=== PATIENT | male | born 1970 | race Caucasian/White ===

== ENCOUNTER → 2016-08-09 | Outpatient (CLI) | payer OTHER ==
[~2016-08-09] MED LIST: FLEXERIL 10 MG10 MG PO; FLOMAX 0.4 MG0.4 MG PO; IBUPROFEN800 MG PO; METOPROLOL TART50 MG PO; NEURONTIN 300300 MG PO; PRILOSEC OTC20 MG PO; PYRIDIUM100 MG PO; SUBOXONE 8 MG-1 EACH SL; TRAZODONE HCL100 MG PO; [UNRECOGNIZED DRUG - OTHER] PO; [UNRECOGNIZED DRUG - REMARK] INH
== END ==
LOC: EXRD 14:30
DX: M25.512 Pain in left shoulder (principal); R07.9 Chest pain, unspecified; Y99.0 Civilian activity done for income or pay
CPT/HCPCS: 71020; 73030; 73080

== ENCOUNTER 2020-05-26 06:33 | Emergency (ER) | payer SELFPAY | END 2020-05-26 08:00 | disposition home or self-care (01) | LOC: ER1 06:33 | DX: S81.811A Laceration without foreign body, right lower leg, initial encounter (principal); S60.211A Contusion of right wrist, initial encounter; S70.01XA Contusion of right hip, initial encounter; I10 Essential (primary) hypertension; F17.210 Nicotine dependence, cigarettes, uncomplicated; Z88.0 Allergy status to penicillin; W19.XXXA Unspecified fall, initial encounter; Y92.009 Unspecified place in unspecified non-institutional (private) residence as the place of occurrence of the external cause | CPT/HCPCS: 12002; 73110; 73502; 73590; 73610; 99283 ==

== ENCOUNTER → 2020-06-22 | Outpatient (CLI) | payer OTHER ==
[~2020-06-22] MED LIST changes: +VIBRAMYCIN 100100 MG GT
== END ==
LOC: KOH-I 14:45
DX: S62.001A Unspecified fracture of navicular [scaphoid] bone of right wrist, initial encounter for closed fracture (principal); M25.551 Pain in right hip; S62.111A Displaced fracture of triquetrum [cuneiform] bone, right wrist, initial encounter for closed fracture
CPT/HCPCS: 73200; 73502; 73552

== ENCOUNTER 2020-07-02 14:24 | Emergency (ER) | payer OTHER ==
[~2020-07-02 14:24] MED LIST changes: -VIBRAMYCIN 100100 MG GT
[2020-07-02] MEDS ORDERED: VIBRAMYCIN 100100 MG GT (15:18)
== END 2020-07-02 15:48 | disposition home or self-care (01) ==
LOC: ER1 14:24
DX: S81.801A Unspecified open wound, right lower leg, initial encounter (principal); L08.9 Local infection of the skin and subcutaneous tissue, unspecified; I10 Essential (primary) hypertension; F17.200 Nicotine dependence, unspecified, uncomplicated; W22.8XXA Striking against or struck by other objects, initial encounter
CPT/HCPCS: 87070; 87077; 87186; 87205; 99283

== ENCOUNTER → 2020-07-13 | Outpatient (CLI) | payer OTHER ==
[~2020-07-13] MED LIST changes: +VIBRAMYCIN 100100 MG GT
== END ==
LOC: WCC 13:00
DX: T81.33XA Disruption of traumatic injury wound repair, initial encounter (principal); J44.9 Chronic obstructive pulmonary disease, unspecified; I10 Essential (primary) hypertension; F17.210 Nicotine dependence, cigarettes, uncomplicated; Z88.0 Allergy status to penicillin; Z79.2 Long term (current) use of antibiotics; Z79.899 Other long term (current) drug therapy; W19.XXXA Unspecified fall, initial encounter

== ENCOUNTER → 2020-07-20 | Outpatient (CLI) | payer OTHER | LOC: WCC 11:00 | DX: T81.33XD Disruption of traumatic injury wound repair, subsequent encounter (principal); I10 Essential (primary) hypertension; J44.9 Chronic obstructive pulmonary disease, unspecified; F17.210 Nicotine dependence, cigarettes, uncomplicated; Z79.2 Long term (current) use of antibiotics; Z79.899 Other long term (current) drug therapy; W19.XXXD Unspecified fall, subsequent encounter ==

== ENCOUNTER → 2020-07-27 | Outpatient (CLI) | payer OTHER | LOC: WCC 14:14 | DX: T81.33XD Disruption of traumatic injury wound repair, subsequent encounter (principal); J44.9 Chronic obstructive pulmonary disease, unspecified; I10 Essential (primary) hypertension; F17.210 Nicotine dependence, cigarettes, uncomplicated; Z88.0 Allergy status to penicillin; Z79.2 Long term (current) use of antibiotics; Z79.899 Other long term (current) drug therapy; W19.XXXD Unspecified fall, subsequent encounter ==

== ENCOUNTER → 2020-08-10 | Outpatient (CLI) | payer OTHER | LOC: WCC 14:30 | DX: T81.33XA Disruption of traumatic injury wound repair, initial encounter (principal); L97.912 Non-pressure chronic ulcer of unspecified part of right lower leg with fat layer exposed; I10 Essential (primary) hypertension; J44.9 Chronic obstructive pulmonary disease, unspecified; F17.210 Nicotine dependence, cigarettes, uncomplicated; Z88.0 Allergy status to penicillin; Z79.899 Other long term (current) drug therapy; W19.XXXA Unspecified fall, initial encounter ==

== ENCOUNTER → 2020-08-14 | Outpatient (CLI) | payer BC | LOC: MRI 10:23 | DX: L97.912 Non-pressure chronic ulcer of unspecified part of right lower leg with fat layer exposed (principal); J44.9 Chronic obstructive pulmonary disease, unspecified; I10 Essential (primary) hypertension; M79.661 Pain in right lower leg; R60.0 Localized edema | CPT/HCPCS: 73718 ==

== ENCOUNTER → 2020-08-17 | Outpatient (CLI) | payer BC | LOC: WCC 14:00 | DX: T81.33XA Disruption of traumatic injury wound repair, initial encounter (principal); L97.912 Non-pressure chronic ulcer of unspecified part of right lower leg with fat layer exposed; J44.9 Chronic obstructive pulmonary disease, unspecified; F17.210 Nicotine dependence, cigarettes, uncomplicated; I10 Essential (primary) hypertension; Z88.0 Allergy status to penicillin; Z79.899 Other long term (current) drug therapy; W19.XXXA Unspecified fall, initial encounter ==

== ENCOUNTER → 2020-08-27 | Outpatient (CLI) | payer BC | LOC: WCC 15:27 | DX: T81.33XD Disruption of traumatic injury wound repair, subsequent encounter (principal); I10 Essential (primary) hypertension; J44.9 Chronic obstructive pulmonary disease, unspecified; L97.912 Non-pressure chronic ulcer of unspecified part of right lower leg with fat layer exposed; M79.661 Pain in right lower leg; W19.XXXD Unspecified fall, subsequent encounter; Z79.899 Other long term (current) drug therapy ==

== ENCOUNTER → 2020-09-03 | Outpatient (CLI) | payer BC | LOC: WCC 15:00 | DX: T81.33XA Disruption of traumatic injury wound repair, initial encounter (principal); L97.912 Non-pressure chronic ulcer of unspecified part of right lower leg with fat layer exposed; J44.9 Chronic obstructive pulmonary disease, unspecified; F17.210 Nicotine dependence, cigarettes, uncomplicated; I10 Essential (primary) hypertension; Z88.0 Allergy status to penicillin; Z79.899 Other long term (current) drug therapy; W19.XXXA Unspecified fall, initial encounter ==

== ENCOUNTER → 2020-09-14 | Outpatient (CLI) | payer BC | LOC: WCC 13:00 | DX: T81.33XA Disruption of traumatic injury wound repair, initial encounter (principal); L97.912 Non-pressure chronic ulcer of unspecified part of right lower leg with fat layer exposed; J44.9 Chronic obstructive pulmonary disease, unspecified; F17.210 Nicotine dependence, cigarettes, uncomplicated; I10 Essential (primary) hypertension; W19.XXXA Unspecified fall, initial encounter; Z88.0 Allergy status to penicillin; Z79.899 Other long term (current) drug therapy ==

== ENCOUNTER → 2020-09-24 | Outpatient (CLI) | payer OTHER, BC | LOC: KOH-I 10:20 | DX: M25.572 Pain in left ankle and joints of left foot (principal) | CPT/HCPCS: 73610 ==

== ENCOUNTER → 2020-09-28 | Outpatient (CLI) | payer OTHER, BC | LOC: WCC 11:06 | DX: T81.33XD Disruption of traumatic injury wound repair, subsequent encounter (principal); F17.210 Nicotine dependence, cigarettes, uncomplicated; J44.9 Chronic obstructive pulmonary disease, unspecified; I10 Essential (primary) hypertension; M79.661 Pain in right lower leg; L97.912 Non-pressure chronic ulcer of unspecified part of right lower leg with fat layer exposed; W19.XXXD Unspecified fall, subsequent encounter | CPT/HCPCS: G0463 ==

== ENCOUNTER → 2020-11-06 | Outpatient (CLI) | payer BC | LOC: KOH-I 08:34 | DX: M67.972 Unspecified disorder of synovium and tendon, left ankle and foot (principal); M79.662 Pain in left lower leg | CPT/HCPCS: 73718 ==

== ENCOUNTER → 2021-02-01 | Outpatient (CLI) | payer BC ==
[2021-02-01 17:14] LABS: HEMOGLOBIN 17.9 gm/dl (14.0-17.5); RED BLOOD COUNT 5.35 M/UL (4.20-5.50); WHITE BLOOD COUNT 12.3 K/UL (4.5-11.0)
[2021-02-01 17:40] LABS: BUN/CREATININE RATIO 11 (0-10)
== END ==
LOC: LAB 15:20
DX: S86.019A Strain of unspecified Achilles tendon, initial encounter (principal)
CPT/HCPCS: 36415; 80053; 85025; 85652; 86141

== ENCOUNTER → 2021-04-05 | Outpatient (CLI) | payer BC | LOC: WCC 07:57 | DX: T81.31XA Disruption of external operation (surgical) wound, not elsewhere classified, initial encounter (principal); I10 Essential (primary) hypertension; J44.9 Chronic obstructive pulmonary disease, unspecified; F17.210 Nicotine dependence, cigarettes, uncomplicated; Z88.0 Allergy status to penicillin; M25.572 Pain in left ankle and joints of left foot ==

== ENCOUNTER → 2021-04-12 | Outpatient (CLI) | payer BC | LOC: WCC 07:37 | DX: T81.33XA Disruption of traumatic injury wound repair, initial encounter (principal); I10 Essential (primary) hypertension; J44.9 Chronic obstructive pulmonary disease, unspecified; M25.572 Pain in left ankle and joints of left foot; F17.210 Nicotine dependence, cigarettes, uncomplicated; Z88.0 Allergy status to penicillin ==

== ENCOUNTER → 2021-04-20 | Outpatient (CLI) | payer BC | LOC: WCC 08:44 | DX: T81.33XD Disruption of traumatic injury wound repair, subsequent encounter (principal); I10 Essential (primary) hypertension; J44.9 Chronic obstructive pulmonary disease, unspecified; M25.572 Pain in left ankle and joints of left foot; F17.210 Nicotine dependence, cigarettes, uncomplicated ==

== ENCOUNTER → 2021-04-28 | Outpatient (CLI) | payer BC | LOC: WCC 07:58 | DX: T81.33XA Disruption of traumatic injury wound repair, initial encounter (principal); I10 Essential (primary) hypertension; J44.9 Chronic obstructive pulmonary disease, unspecified; M25.572 Pain in left ankle and joints of left foot; A49.02 Methicillin resistant Staphylococcus aureus infection, unspecified site; Z72.0 Tobacco use; Z88.0 Allergy status to penicillin ==

== ENCOUNTER → 2021-05-04 | Outpatient (CLI) | payer BC | LOC: WCC 09:12 | DX: T81.33XA Disruption of traumatic injury wound repair, initial encounter (principal); I10 Essential (primary) hypertension; J44.9 Chronic obstructive pulmonary disease, unspecified; F17.210 Nicotine dependence, cigarettes, uncomplicated; M25.572 Pain in left ankle and joints of left foot; A49.02 Methicillin resistant Staphylococcus aureus infection, unspecified site; Z88.0 Allergy status to penicillin ==

== ENCOUNTER → 2021-05-10 | Outpatient (CLI) | payer BC | LOC: WCC 08:14 | DX: T81.33XA Disruption of traumatic injury wound repair, initial encounter (principal); I10 Essential (primary) hypertension; J44.9 Chronic obstructive pulmonary disease, unspecified; M25.572 Pain in left ankle and joints of left foot; A49.02 Methicillin resistant Staphylococcus aureus infection, unspecified site; F17.210 Nicotine dependence, cigarettes, uncomplicated; Z88.0 Allergy status to penicillin ==

== ENCOUNTER → 2021-05-17 | Outpatient (CLI) | payer BC | END | disposition home or self-care (01) | LOC: WCC 08:33 | PROC: 0JBP0ZZ Excision of Left Lower Leg Subcutaneous Tissue and Fascia, Open Approach (ICD-10-PCS; principal; 2021-05-17) | DX: T81.31XA Disruption of external operation (surgical) wound, not elsewhere classified, initial encounter (principal); I10 Essential (primary) hypertension; J44.9 Chronic obstructive pulmonary disease, unspecified; M19.90 Unspecified osteoarthritis, unspecified site; F17.210 Nicotine dependence, cigarettes, uncomplicated; Y83.8 Other surgical procedures as the cause of abnormal reaction of the patient, or of later complication, without mention of misadventure at the time of the procedure; Z88.0 Allergy status to penicillin ==

== ENCOUNTER → 2021-05-24 | Outpatient (CLI) | payer BC | LOC: WCC 08:13 | DX: T81.33XD Disruption of traumatic injury wound repair, subsequent encounter (principal); I10 Essential (primary) hypertension; J44.9 Chronic obstructive pulmonary disease, unspecified; M25.572 Pain in left ankle and joints of left foot; Y83.9 Surgical procedure, unspecified as the cause of abnormal reaction of the patient, or of later complication, without mention of misadventure at the time of the procedure; Z72.0 Tobacco use ==

== ENCOUNTER → 2021-05-31 | Outpatient (CLI) | payer BC | LOC: WCC 10:47 | DX: T81.33XD Disruption of traumatic injury wound repair, subsequent encounter (principal); I10 Essential (primary) hypertension; J44.9 Chronic obstructive pulmonary disease, unspecified; M25.572 Pain in left ankle and joints of left foot; Y83.8 Other surgical procedures as the cause of abnormal reaction of the patient, or of later complication, without mention of misadventure at the time of the procedure; Z72.0 Tobacco use ==

== ENCOUNTER → 2021-06-14 | Outpatient (CLI) | payer BC | LOC: WCC 09:23 | DX: T81.33XA Disruption of traumatic injury wound repair, initial encounter (principal); I10 Essential (primary) hypertension; J44.9 Chronic obstructive pulmonary disease, unspecified; F17.210 Nicotine dependence, cigarettes, uncomplicated; M25.572 Pain in left ankle and joints of left foot ==

== ENCOUNTER → 2021-06-21 | Outpatient (CLI) | payer BC | LOC: WCC 08:07 | DX: T81.33XA Disruption of traumatic injury wound repair, initial encounter (principal); I10 Essential (primary) hypertension; J44.9 Chronic obstructive pulmonary disease, unspecified; F17.210 Nicotine dependence, cigarettes, uncomplicated ==

== ENCOUNTER → 2021-06-28 | Outpatient (CLI) | payer BC | LOC: WCC 08:52 | DX: T81.33XA Disruption of traumatic injury wound repair, initial encounter (principal); I10 Essential (primary) hypertension; J44.9 Chronic obstructive pulmonary disease, unspecified; M25.572 Pain in left ankle and joints of left foot; F17.210 Nicotine dependence, cigarettes, uncomplicated; Z88.0 Allergy status to penicillin ==

== ENCOUNTER → 2021-07-05 | Outpatient (CLI) | payer BC | LOC: WCC 09:14 | DX: T81.33XA Disruption of traumatic injury wound repair, initial encounter (principal); I10 Essential (primary) hypertension; J44.9 Chronic obstructive pulmonary disease, unspecified; M25.572 Pain in left ankle and joints of left foot; Y83.8 Other surgical procedures as the cause of abnormal reaction of the patient, or of later complication, without mention of misadventure at the time of the procedure; Z72.0 Tobacco use ==

== ENCOUNTER → 2021-07-12 | Outpatient (CLI) | payer BC | END | disposition home or self-care (01) | LOC: WCC 09:01 | DX: T81.33XA Disruption of traumatic injury wound repair, initial encounter (principal); M25.572 Pain in left ankle and joints of left foot; I10 Essential (primary) hypertension; J44.9 Chronic obstructive pulmonary disease, unspecified; F17.210 Nicotine dependence, cigarettes, uncomplicated; Z79.899 Other long term (current) drug therapy ==

== ENCOUNTER → 2021-07-19 | Outpatient (CLI) | payer BC | LOC: WCC 09:27 | DX: T81.32XA Disruption of internal operation (surgical) wound, not elsewhere classified, initial encounter (principal); I10 Essential (primary) hypertension; J44.9 Chronic obstructive pulmonary disease, unspecified; M25.572 Pain in left ankle and joints of left foot; Y79.8 Miscellaneous orthopedic devices associated with adverse incidents, not elsewhere classified; Y83.8 Other surgical procedures as the cause of abnormal reaction of the patient, or of later complication, without mention of misadventure at the time of the procedure; Z72.0 Tobacco use; Z88.0 Allergy status to penicillin ==

== ENCOUNTER → 2021-07-26 | Outpatient (CLI) | payer BC | LOC: WCC 08:19 | DX: T81.33XA Disruption of traumatic injury wound repair, initial encounter (principal); I10 Essential (primary) hypertension; J44.9 Chronic obstructive pulmonary disease, unspecified; M25.572 Pain in left ankle and joints of left foot; Z72.0 Tobacco use; Z88.0 Allergy status to penicillin; Z79.899 Other long term (current) drug therapy ==

== ENCOUNTER → 2021-08-16 | Outpatient (CLI) | payer BC | LOC: WCC 08:51 | DX: T81.33XD Disruption of traumatic injury wound repair, subsequent encounter (principal); I10 Essential (primary) hypertension; J44.9 Chronic obstructive pulmonary disease, unspecified; R60.0 Localized edema; M25.572 Pain in left ankle and joints of left foot; Z72.0 Tobacco use | CPT/HCPCS: G0463 ==

== ENCOUNTER → 2021-09-14 | Outpatient (CLI) | payer BC | END | disposition home or self-care (01) | LOC: WCC 07:49 | DX: T81.33XA Disruption of traumatic injury wound repair, initial encounter (principal); I10 Essential (primary) hypertension; J44.9 Chronic obstructive pulmonary disease, unspecified; M25.572 Pain in left ankle and joints of left foot; R60.0 Localized edema; F17.210 Nicotine dependence, cigarettes, uncomplicated ==

== ENCOUNTER → 2021-09-23 | Outpatient (CLI) | payer BC | LOC: KOH-I 08:19 | DX: S86.012A Strain of left Achilles tendon, initial encounter (principal) | CPT/HCPCS: 73721 ==

== ENCOUNTER → 2021-09-27 | Outpatient (CLI) | payer BC | LOC: WCC 08:00 | DX: T81.33XA Disruption of traumatic injury wound repair, initial encounter (principal); I10 Essential (primary) hypertension; J44.9 Chronic obstructive pulmonary disease, unspecified; M25.572 Pain in left ankle and joints of left foot; R60.0 Localized edema; Z72.0 Tobacco use ==

== ENCOUNTER → 2021-10-11 | Outpatient (CLI) | payer BC | END | disposition home or self-care (01) | LOC: WCC 07:31 | DX: T81.33XA Disruption of traumatic injury wound repair, initial encounter (principal); I10 Essential (primary) hypertension; J44.9 Chronic obstructive pulmonary disease, unspecified; M25.572 Pain in left ankle and joints of left foot; R60.0 Localized edema; F17.210 Nicotine dependence, cigarettes, uncomplicated ==

== ENCOUNTER → 2021-10-25 | Outpatient (CLI) | payer BC | LOC: WCC 07:39 | DX: T81.33XA Disruption of traumatic injury wound repair, initial encounter (principal); Y83.8 Other surgical procedures as the cause of abnormal reaction of the patient, or of later complication, without mention of misadventure at the time of the procedure; I10 Essential (primary) hypertension; J44.9 Chronic obstructive pulmonary disease, unspecified; R60.0 Localized edema; Z72.0 Tobacco use ==

== ENCOUNTER → 2021-11-10 | Outpatient (CLI) | payer BC | LOC: WCC 08:13 | DX: T81.33XA Disruption of traumatic injury wound repair, initial encounter (principal); I10 Essential (primary) hypertension; J44.9 Chronic obstructive pulmonary disease, unspecified; M25.572 Pain in left ankle and joints of left foot; R60.0 Localized edema; Z72.0 Tobacco use | CPT/HCPCS: 97597 ==